=== PATIENT | male | born 1995 | race Caucasian/White ===

== ENCOUNTER 2021-09-22 23:54 | Emergency (ER) | payer OTHER ==
[~2021-09-22] VITALS: Ht 188 cm; Wt 81.6 kg
--- NOTE | 2021-09-23 00:40 | NUR ---
DR. SIMPSON AT BEDSIDE, MSE IN PROGRESS.
[2021-09-23] MEDS ORDERED: ACETAMINOPHEN ES 500 MG TABLET PO ONE (00:45)
[2021-09-23] MEDS ORDERED: ACETAMINOPHEN ES 500 MG TABLET ONE (00:55)
[2021-09-23] MEDS ORDERED: ONDANSETRON 4 MG/2 ML VIAL ONE (00:55)
[2021-09-23] MEDS ORDERED: ONDANSETRON 4 MG/2 ML VIAL IV ONE (01:00)
[2021-09-23] MEDS ORDERED: IV NORMAL SALINE 1000 ML BAG IV ONE ×2 (01:00→02:15)
[2021-09-23 01:08] LABS: HEMATOCRIT 42.2 % (36.7-47.1); MEAN CORPUSCULAR HEMOGLOBIN 31.3 uug (23.8-33.4); MEAN CORPUSCULAR VOLUME 88.7 fL (73.0-96.2); PLATELET COUNT (AUTO) 200 K/uL (152-348)
[2021-09-23] MEDS ORDERED: HYDROCODONE/APAP 5-325MG TABLET PO ONE (01:15)
[2021-09-23] MEDS ORDERED: ACYCLOVIR 400 MG TABLET PO ONE (01:15)
[2021-09-23 01:20] LABS: CREATININE 1.1 mg/dL (0.6-1.3); POTASSIUM 3.7 mmol/L (3.5-5.1)
[2021-09-23] MEDS ORDERED: HYDROCODONE/APAP 5-325MG TABLET ONE (01:21)
[2021-09-23] MEDS ORDERED: ACYCLOVIR 200 MG CAPSULE ONE (01:21)
--- NOTE | 2021-09-23 01:21 | NUR ---
PT TAKEN TO CT.
[2021-09-23 01:24] LABS: BILIRUBIN,DIRECT 0.2 mg/dL (0.0-0.2); BILIRUBIN,TOTAL 0.8 mg/dL (0.2-1.0)
--- NOTE | 2021-09-23 01:30 | NUR ---
PT RETURNED FROM CT.
--- NOTE | 2021-09-23 01:31 | NUR ---
Ilene garcia in [facility] - 09/23/21 at 0138 by [email or web address] pt returned from cat scan.
[2021-09-23] MEDS ORDERED: ACYC-106 PO (02:52)
[2021-09-23] MEDS ORDERED: ONDA4TAB5 PO (02:52)
[2021-09-23] MEDS ORDERED: HYDR-4209 PO (02:52)
--- NOTE | 2021-09-23 03:20 | NUR ---
PT AMBULATED TPO RESTROOM IN STEADY GAIT, DENIES ANY N/V OR DIZZYNESS.
--- NOTE | 2021-09-23 03:46 | NUR ---
Patient discharged to home in stable condition. Written and verbal after care instructions given. Patient verbalizes understanding of instructions. Stressed follow up or return to ER for worsening s/s. Steady gait, denies any PANG, dizzyness. No n/v. Picked up by signficicant other. IV removed.
[2021-09-23 03:47] VITALS: BP 126/76
== END 2021-09-23 03:48 | disposition home or self-care (01) ==
LOC: ER 23:59
DX: B00.1 Herpesviral vesicular dermatitis (principal); J02.9 Acute pharyngitis, unspecified; R55 Syncope and collapse; Z20.822 Contact with and (suspected) exposure to COVID-19
CPT/HCPCS: 36415; 70450; 80048; 80076; 85025; 86403; 87426; 96361; 96374; 99284; J2405; J7040 ×2; 87070; A9150